=== PATIENT | male | born 1990 | race Caucasian/White ===

== ENCOUNTER → 2023-10-13 16:09 | Outpatient (CLI) | payer BC, SELFPAY ==
--- NOTE | ~2023-10-13 | XR_ITS ---
XR chest 2V DATE: 10/13/2023 16:50 INDICATION: Asthma TECHNIQUE: 2 views COMPARISON: None FINDINGS: Normal heart size. No hilar or mediastinal enlargement. No pulmonary infiltrate or consol idation, pulmonary vascular congestion or pleural effusion or pneumothorax. IMPRESSION: No active cardiopulmonary disease Reviewed, dictated and finalized at location [facility]. [facility]
== END ==
PROVIDERS: PCP Nurse Practitioner Family; Visit Provider Nurse Practitioner Family
DX: J45.909 Unspecified asthma, uncomplicated (principal)
CPT/HCPCS: 71046